=== PATIENT | female | born 1995 ===

== ENCOUNTER 2017-07-22 11:01 | Day surgery (SDC) | payer MEDICAID ==
[2017-07-21 12:49] VITALS: BMI 24.4
[2017-07-22 11:44] VITALS: O2SAT 100
[2017-07-22] MEDS ORDERED: Bupivacaine 0.5% Inj(30mL) INFIL ONE (11:48)
[2017-07-22] MEDS ORDERED: Bupivacaine HCl 0.5% PF (30 ml) Inj ONE (11:49)
[2017-07-22] MEDS ORDERED: ceFAZolin 1 gm in NS 1 GM/100 ML BAG IVPB ONE (11:49)
[2017-07-22] MEDS ORDERED: Lidocaine 2% Inj (20ml) INFIL ONE (11:52)
[2017-07-22] MEDS ORDERED: Midazolam 2 MG/2 ML VIAL ONE (12:48)
[2017-07-22] MEDS ORDERED: Propofol 10 mg/ml Inj (20 ML) ONE (12:48)
[2017-07-22] MEDS ORDERED: Dexamethasone 4 mg/1 ml ONE (13:22)
[2017-07-22] MEDS ORDERED: Lactated Ringer's 1,000 ML IV ONE (13:37)
[2017-07-22] MEDS ORDERED: HYDROmorphone 0.5 mg/0.5 ml ISec IVP PRN (13:41)
--- NOTE | 2017-07-22 13:43 | PCM.SURG1 ---
Surgeon's Initial Post Op Note - Surgeon's Notes Surgeon: Dr. Andujar Liquefaction Plant Operator: Dr. 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 4-0 nylon Post-Operative Diagnosis: same Operation Performed: Right foot 5th digit arthroplasty with extensor tenotomy Specimen/Specimens Removed: none Estimated Blood Loss: EBL {In ML}: 3 Blood Products Given: N/A Drains Used: No Drains Post-Op Condition: Good Date of Surgery/Procedure: 07/22/17 Time of Surgery/Procedure: 12:30
[2017-07-22] MEDS ORDERED: Oxycodone/Acetaminophen 5/325 mg Tab PO PRN ×2 (13:44)
--- NOTE | 2017-07-22 14:22 | RAD ---
PROCEDURE: Right Foot Radiographs. HISTORY: right foot surgery COMPARISON: None. FINDINGS: BONES: Status post osteotomy 5th digit including distal aspect 5th proximal phalanx. Evaluation limited due to single view only included. No acute fracture. JOINTS: Normal. SOFT TISSUES: Normal. OTHER FINDINGS: None. IMPRESSION: Status post osteotomy 5th digit.
[2017-07-22 15:01] VITALS: BP 120/72; PULSE 68; RESP 18; TEMP 97
--- NOTE | 2017-07-26 21:41 | PCM.OP ---
Operative Report - Operative Report Date of Surgery/Procedure: 07/22/17 Time of Surgery/Procedure: 08:00 Surgeon: Dr. Andujar Pleating Machine Operator: Dr. 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 2)Right foot 5th digit hammertoe deformity Post-Operative Diagnosis: same Indication for Surgery: Indications: The patient is a 22 year-old female with the above diagnoses. The patient has exhausted conservative treatment at this time and now requests surgical intervention. The patient signed the consent after careful explanation of risks, benefits, complication and alternatives for surgical procedure. No guarantees were given nor implied. 2 grams of ancef IV were given to the pt hour prior to the procedure. NPO status was confirmed prior to taking patient to the OR. Operative Findings: Preparation: The patient was brought to the operating room and placed on the operating room table in supine position. A well-padded pneumatic ankle tourniquet was placed to the patient's RIGHT ankle in a supramalleolar position. After induction of IV sedation, the patient received a total of 20 mL of 0.5% Marcaine plain in local block fashion to the RIGHT foot. Once local anesthesia was achieved, the RIGHT foot was then prepped and draped in usual sterile manner. Esmarch was utilized to exsanguinate the patient 's right foot. Pneumatic ankle tourniquet was then inflated to 250 mmHg and procedure began. Procedure/Operation Description: Name of Procedure: 1)Right foot 5th digit extensor tendon percutaneous release. 2)Right foot 5TH digit PIPJ arthroplasty. PROCEDURE #1: Right foot 5th digit extensor tendon percutaneous release. Attention was directed to the dorsal aspect of right foot 5th digit MTPJ. Utilizing #15 blade, a longitudinal stab incision measuring approximately 1cm was made lateral to the tendon of extensor digitorum longus of 5th digit. Next, utilizing freer elevator, the 5th digit extensor tendon was identified and clearly visualized through the incision. This tendon was then elevated through the incision with freer elevator and transected with #15 blade. The Surgical site was flushed with copious amount of sterile normal saline solution. Correction of the deformity was assessed at this time, and was noted to be improved. It was intra-operatively determined that 5th digit PIPJ arthroplasty was necessary to fully correct the deformity. PROCEDURE #2: Right foot 5TH digit PIPJ arthroplasty. Attention was directed to the dorsal aspect of the 5TH digit right foot where an elliptical incision was made overlying the proximal interphalangeal joint of the 5th digit with tips pointing distal medial and proximal lateral. The elliptical skin cutout was removed from the surgical field. The incision was deepened through subcutaneous tissue with care being taken to identify and retract all vital neurovascular structures. All bleeders were cauterized and ligated as necessary. At this time, a transverse tenotomy and capsulotomy was performed to the proximal interphalangeal joint of the 5th digit, right foot. The head of the proximal phalanx was then freed of its capsular and ligamentous attachments. Next utilizing an oscillating saw, the head of the proximal phalanx was resected and passed from the operative site. The wound was then flushed with copious amount of sterile normal saline. Next, the extensor tendon was reapproximated with #3-0 vicryl. Correction of the deformity was assessed at this time and noted to be excellent. The skin was reapproximated with # 4-0 Nylon. Right foot was then applied with betadine soaked adaptic, 4x4, cling, and OMID bandage. The attending was present during the entire case. Estimated Blood Loss: < 5 mL Complications: None Discharge & Condition: Postoperative Condition: The patient tolerated the anesthesia and procedure well and was escorted to the recovery room with vital signs stable and neurovascular status intact to the right foot. This patient will follow up with Dr. Andujar
== END 2017-07-22 15:59 | disposition home or self-care (01) ==
LOC: C.SDS 11:01
PROVIDERS: ATTEND Podiatrist Foot & Ankle Surgery
DX: M20.11 Hallux valgus (acquired), right foot (principal); M20.41 Other hammer toe(s) (acquired), right foot
CPT/HCPCS: 28285; 73620; J0690; J1100; J2250; J2405; J2704; J3010; J7120